=== PATIENT | female | born 1975 | race American Indian/Alaskan Native ===

== ENCOUNTER 2018-12-24 15:17 | Outpatient (CLI) | payer OTHER | END 2018-12-24 15:18 | disposition home or self-care (01) | LOC: LABHHL 15:17 | PROVIDERS: ATTEND Surgery | DX: N60.11 Diffuse cystic mastopathy of right breast (principal); N62 Hypertrophy of breast | CPT/HCPCS: 88305; 88341; 88342 ==

== ENCOUNTER 2019-02-02 09:15 | Outpatient (CLI) | payer OTHER ==
--- NOTE | 2019-02-03 12:40 | Mammography Report ---
UNSUCCESSFUL STEREOTACTIC VACUUM ASSISTED BIOPSY : 02/02/19 09:15:00 CLINICAL: 8mm mass at 8:30 o'clock and negative ultrasound. COMPARISON:12/24/18 and 12/20/18 mammograms. FINDINGS: On the morning of 02/02/19, consent for the procedure was obtained, all supplies were readied and the lesion was targeted stereotactic guidance. Before beginning the actual procedure, the patient became very anxious and declared that she did not want to proceed with the procedure. At this time, I discussed the option of her returning after receiving oral sedation. She returned in the afternoon on 02/02/19 and the lesion was again successfully targeted. However, when I walked into the room, it was apparent that the patient was even more anxious and she was earlier in the day and she asked if she could be put to sleep for the procedure. I explained to her that that was not possible and she again stated that she could not go through with the procedure. IMPRESSION: Unsuccessful right stereotactic breast biopsy. Recommend either close mammographic surveillance of the lesion at 6 month intervals or surgical excision.
== END 2019-02-02 09:16 | disposition home or self-care (01) ==
LOC: SPVWC 09:15
PROVIDERS: ATTEND Surgery
DX: N60.21 Fibroadenosis of right breast (principal); N60.01 Solitary cyst of right breast
CPT/HCPCS: 19081; A4648

== ENCOUNTER 2019-03-30 06:13 | Day surgery (SDC) | payer OTHER ==
[2019-03-30] MEDS ORDERED: XYLOCAINE 1% 20 mL INFILTRATI NR (08:00)
[2019-03-30] MEDS ORDERED: XYLOCAINE 1% 20 mL ONE (08:45)
--- NOTE | 2019-03-30 09:39 | Mammography Report ---
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 COMPARISON: 03/03/19 FINDINGS: Using mammographic guidance, 1% lidocaine local anesthesia and sterile technique, a 7.5-cm [place] needle with a hookwire was placed from a lateral approach to localize a biopsy clip.. The hookwire was deployed and the needle was removed. Satisfactory placement was confirmed by orthogonal views. The patient tolerated the procedure well and there were no apparent complications. IMPRESSION: Uncomplicated hookwire placement right breast.
[2019-03-30] MEDS ORDERED: LACTATED RINGERS 1,000 ML IV SCH (10:00)
[2019-03-30] MEDS ORDERED: ANCEF/STERILE WATER 2 GM/20 ML IV NR (11:00)
[2019-03-30] MEDS ORDERED: MARCAINE-EPI 0.25%-1:200,000 INFILTRATI ONE (11:15)
[2019-03-30] MEDS ORDERED: SUBLIMAZE ONE ×2 (11:16→14:50)
[2019-03-30] MEDS ORDERED: VERSED ONE (11:16)
--- NOTE | 2019-03-30 14:37 | Operative Report ---
Operative Report Operative Report: Date of Service: March 30, 2019 Preoperative diagnosis: Right breast mass with atypia Postoperative diagnosis: Same Procedure: Right breast mass excisional biopsy Anesthesia: General Surgeon: Guadalupe Leger M.D. Findings: Right breast mass with clip and wire present Complications: None Drains: None Estimated blood loss: Minimal Disposition: PACU in good condition Indication for operative procedure: This is a 43-year-old lady with recent abnormal right mammogram and recent stereotactic biopsy with findings of a fibroepithelia lesion with atypia. Recommendations are for excisional biopsy to rule out malignancy. Patient wished to proceed with the above procedure. The patient was procedure in detail: Radiology placed wire at location of clip placement. The patient was taken to the operating room and was laid supine. General anesthesia was administered. The right breast wire was identified. Timeout was performed. A breast incision around the 7:00 position was made with a 15 blade knife with dissection taken down to the subcutaneous tissues. The wire was removed inferiorly from the skin. Inferior flap was then raised taken down posteriorly followed by raising of the lateral, superior and medial flaps with dissection taken down posteriorly. The area of concern was then removed posteriorly with the aid of the bovie cautery. The mass was not encountered. The specimen was sent to pathology and radiology. Radiograph specimen with clip, mass and wire present. Hemostasis was then obtained using the Bovie cautery. The breast cavity was irrigated and suctioned. The deep breast tissues were approximated and closed using interrupted 3-0 Vicryl and skin brought together and closed using a running 4-0 Monocryl followed by skin affix.
--- NOTE | 2019-03-30 14:39 | Short Stay Summary ---
Short Stay Documentation Date of service: 03/30/19 - History H&P: obtained from office - Allergies and Medications Current Medications: Allergies Sulfa (Sulfonamide Antibiotics) Allergy (Verified 03/28/19 15:57) Rash Home Medications Medication Instructions Recorded Confirmed Last Taken Type Zolpidem [Ambien] 0.5 tab PO QHS PRN 03/28/19 03/30/19 03/29/19 History amLODIPine [Norvasc] 5 mg PO DAILY 03/28/19 03/30/19 03/30/19 05:30 History hydroCHLOROthiazide [HCTZ] 25 mg PO QDAY 03/28/19 03/30/19 03/29/19 History Active Medications Cefazolin Sodium (Ancef/Sterile Water 2 Gm/20 Ml) 2 gm IV PREOP NR Stop: 03/30/19 23:59 Lactated Ringer's (Lactated Ringers) 1,000 mls @ 100 mls/hr IV DIRECT JAZMIN Last Admin: 03/30/19 10:27 Dose: 100 mls/hr Documented by: Lidocaine (Xylocaine 1% 20 Ml) 20 ml INFILTRATI ONCE NR Stop: 03/30/19 15:00 - Brief post op/procedure progress note Date of procedure: 03/30/19 Pre-op diagnosis: Right breast mass Post-op diagnosis: same Procedure: Right needle localization excisional biopsy Anesthesia: GETA Findings: Wire and clip present Surgeon: AMY BAPTISTE Estimated blood loss: minimal Pathology: list (right breast mass) Specimen disposition: to lab Condition: stable - Disposition Condition at discharge: Good Disposition: DC-01 TO HOME OR SELFCARE Short Stay Discharge Plan Activity: other (no heavy lifting) Diet: regular Wound: keep clean and dry (may shower in 48 hours; no baths, pools or lakes; wear breast binder) Follow up with: JUANITO HARRELL PA [Primary Care Provider] - 7 Days AMY BAPTISTE MD [Staff Physician] - 7 Days Prescriptions: HYDROcodone/APAP 5-325 [[place] 5/325] 1 each PO Q6HR PRN #25 tablet PRN Reason: Pain
[2019-03-30] MEDS ORDERED: XYLOCAINE MPF 2% ONE (14:50)
[2019-03-30] MEDS ORDERED: ZOFRAN ONE (14:50)
[2019-03-30] MEDS ORDERED: DIPRIVAN 10 MG/ML IV ONE (14:50)
[2019-03-30] MEDS ORDERED: DECADRON ONE (14:50)
[2019-03-30] MEDS ORDERED: WATER FOR IRRIG STERILE IR ONE (15:36)
[2019-03-30] MEDS ORDERED: DILAUDID IV PRN (16:12)
[2019-03-30] MEDS ORDERED: ZOFRAN IV PRN (16:12)
--- NOTE | 2019-03-30 16:19 | XRay Report ---
SPECIMEN RADIOGRAPH RIGHT BREAST: 03/30/19 06:13:00 CLINICAL: Surgical excision of a suspicious fibroepithelial lesion. FINDINGS: The targeted mass with a localizer clip and a hookwire are identified within the specimen. IMPRESSION: Excision of the targeted lesion.
--- NOTE | 2019-03-30 16:51 | Anesthesia Consultation ---
Anesthesia Consult and Med Hx - Airway Anesthetic Teeth Evaluation: Good ROM Head & Neck: Adequate Mental/Hyoid Distance: Adequate Mallampati Class: Class II Intubation Access Assessment: Good - Pulmonary Exam CTA: Yes - Cardiac Exam Cardiac Exam: RRR - Pre-Operative Health Status ASA Pre-Surgery Classification: ASA2 Proposed Anesthetic Plan: General - Pulmonary Hx Smoking: No - Cardiovascular System Hx Hypertension: Yes (2008) - Central Nervous System Hx Psychiatric Problems: Yes - Other Systems Hx Alcohol Use: Yes Hx Substance Use: No
--- NOTE | 2019-03-30 16:52 | Post Anesthesia Evaluation ---
- Post Anesthesia Evaluation Patient Participated: Yes Airway Patent: Yes Stable Respiratory Function: Yes Nausea/Vomiting: No Temp > 96.8F: Yes Pain Manageable: Yes Adequeate Hydration: Yes Anesthesia Complications: No Block Receding Appropriately: Yes Patient on Ventilator: No
[2019-03-30 17:57] VITALS: BP 139/76
== END 2019-03-30 06:14 | disposition home or self-care (01) ==
LOC: OR 06:13
PROVIDERS: ATTEND Surgery
DX: D24.1 Benign neoplasm of right breast (principal); N60.31 Fibrosclerosis of right breast; I10 Essential (primary) hypertension; F32.9 Major depressive disorder, single episode, unspecified; F41.9 Anxiety disorder, unspecified; Z72.89 Other problems related to lifestyle; Z98.890 Other specified postprocedural states; Z79.899 Other long term (current) drug therapy; Z88.2 Allergy status to sulfonamides
CPT/HCPCS: 19125; 19281; 76098; 82803; 88307; J0690; J1100; J2250; J2405; J2704; J3010; J7120

== ENCOUNTER 2019-10-04 14:33 | Outpatient (CLI) | payer OTHER ==
--- NOTE | 2019-10-04 15:41 | Mammography Report ---
DIGITAL BILATERAL DIAGNOSTIC MAMMOGRAM WITH CAD, WITHOUT TOMOSYNTHESIS 10/04/2019 INDICATION: Status post right stereotactic biopsy and subsequent benign surgical excision 02/28/2019. TECHNIQUE: Digital bilateral mammographic imaging was performed. This examination was interpreted with the benefit of Computer-aided Detection analysis. COMPARISON: 03/30/2019, 03/03/2019 and 11/11/2018 Breast Density: The breasts are heterogeneously dense, which may obscure small masses. FINDINGS: A right upper biopsy clip and a stable density at the clip. Right outer benign postsurgical scar. The previously identified circumscribed outer right breast nodule is no longer identified. No mass, architectural distortion or suspicious calcifications in either breast. IMPRESSION: No mammographic evidence of malignancy. Follow up recommendation: Routine BI-RADS Category 2: Benign. A "normal" or negative report should not discourage follow up or biopsy of a clinically significant f inding. A written summary of these findings will be mailed to the patient. The patient will be entered into a mammography reporting system which will generate a reminder letter for the patient's next appointmen t at the appropriate interval. According to the [employer], yearly mammograms are recommended starting at age 40 and continuing as long as a woman is in good health. Breast MRI is recommended for women with an linus roximately 20-25% or greater lifetime risk of breast cancer, including women with a strong family his tory of breast or ovarian cancer and women who have been treated for Hodgkin's disease. Signer Name: Henrry Zepeda MD Signed: 10/04/2019 3:36 PM Workstation Name: [id number]
== END 2019-10-04 14:34 | disposition home or self-care (01) ==
LOC: SPVWC 14:33
PROVIDERS: ATTEND Surgery
DX: R92.8 Other abnormal and inconclusive findings on diagnostic imaging of breast (principal)
CPT/HCPCS: 77066